=== PATIENT | female | born 1945 | race Two or more races ===

== ENCOUNTER 2017-02-18 13:03 | Emergency (ER) | payer OTHER ==
[~2017-02-18] VITALS: Ht 157.5 cm; Wt 52.2 kg
[~2017-02-18 13:03] MED LIST: AMOX1TAB12 PO; AMOX1TAB8 PO; CREON DR 12,001 EACH; GEMFIBROZIL600 MG PO; LEVO-T125 MCG PO; LEVOTHYROXINE125 MCG PO; LEVSIN/SL0.125 MG SL; PROTONIX40 MG PO; SYNTHROID125 MCG
[2017-02-18] MEDS ORDERED: CREON DR 3,0001 EACH (13:20)
[2017-02-18] MEDS ORDERED: CREON DR 12,001 EACH (13:21)
== END 2017-02-18 15:54 | disposition home or self-care (01) ==
LOC: ER 13:03
DX: S01.122A Laceration with foreign body of left eyelid and periocular area, initial encounter (principal); W06.XXXA Fall from bed, initial encounter; Y93.89 Activity, other specified; Y92.092 Bedroom in other non-institutional residence as the place of occurrence of the external cause; Y99.8 Other external cause status

== ENCOUNTER 2017-03-06 08:54 | Outpatient (CLI) | payer OTHER ==
[~2017-03-06 08:54] MED LIST changes: +CREON DR 3,0001 EACH
== END 2017-03-06 15:59 | disposition home or self-care (01) ==
LOC: TOM 08:54
DX: K86.1 Other chronic pancreatitis (principal)
CPT/HCPCS: 74170; Q9965

== ENCOUNTER 2017-05-03 12:32 | Outpatient (CLI) | payer OTHER | END 2017-05-03 12:39 | disposition home or self-care (01) | LOC: RAD 12:32 | DX: M25.562 Pain in left knee (principal); M25.561 Pain in right knee ==

== ENCOUNTER 2017-08-05 09:16 | Outpatient (CLI) | payer OTHER | END 2017-08-05 11:59 | disposition home or self-care (01) | LOC: MAMO-SONO 09:16 | DX: Z12.31 Encounter for screening mammogram for malignant neoplasm of breast (principal); Z87.898 Personal history of other specified conditions; N63.10 Unspecified lump in the right breast, unspecified quadrant; N63.20 Unspecified lump in the left breast, unspecified quadrant; I10 Essential (primary) hypertension; M54.5 Low back pain; E78.89 Other lipoprotein metabolism disorders; E03.8 Other specified hypothyroidism; M89.9 Disorder of bone, unspecified; K21.9 Gastro-esophageal reflux disease without esophagitis ==

== ENCOUNTER 2017-09-17 17:32 | Emergency (ER) | payer OTHER ==
[~2017-09-17] VITALS: Ht 170.2 cm; Wt 65.8 kg
== END 2017-09-17 20:21 | disposition home or self-care (01) ==
LOC: ER 17:32
DX: N39.0 Urinary tract infection, site not specified (principal); B96.1 Klebsiella pneumoniae [K. pneumoniae] as the cause of diseases classified elsewhere

== ENCOUNTER 2017-10-16 11:20 | Emergency (ER) | payer OTHER ==
[~2017-10-16] VITALS: Ht 154.9 cm; Wt 54.4 kg
== END 2017-10-16 15:39 | disposition home or self-care (01) ==
LOC: ER 11:20
DX: N39.0 Urinary tract infection, site not specified (principal); B96.29 Other Escherichia coli [E. coli] as the cause of diseases classified elsewhere

== ENCOUNTER 2017-12-28 10:30 | Emergency (ER) | payer OTHER ==
[~2017-12-28] VITALS: Ht 154.9 cm; Wt 56.2 kg
[2017-12-28] MEDS ORDERED: SYNTHROID112 MCG (10:58)
== END 2017-12-28 16:48 | disposition home or self-care (01) ==
LOC: ER 10:30
DX: N39.0 Urinary tract infection, site not specified (principal); B96.29 Other Escherichia coli [E. coli] as the cause of diseases classified elsewhere

== ENCOUNTER 2018-09-02 11:01 | Emergency (ER) | payer OTHER ==
[~2018-09-02] VITALS: Ht 152.4 cm; Wt 56.2 kg
[~2018-09-02 11:01] MED LIST changes: +SYNTHROID112 MCG
== END 2018-09-02 15:50 | disposition home or self-care (01) ==
LOC: ER 11:01
DX: N39.0 Urinary tract infection, site not specified (principal); B96.29 Other Escherichia coli [E. coli] as the cause of diseases classified elsewhere

== ENCOUNTER 2019-03-18 10:34 | Outpatient (CLI) | payer OTHER | END 2019-03-18 10:36 | disposition home or self-care (01) | LOC: MAMO-SONO 10:34 | DX: M54.5 Low back pain (principal); M89.8X8 Other specified disorders of bone, other site; Z12.31 Encounter for screening mammogram for malignant neoplasm of breast; Z87.898 Personal history of other specified conditions; E03.8 Other specified hypothyroidism; E55.9 Vitamin D deficiency, unspecified; E78.89 Other lipoprotein metabolism disorders; G62.89 Other specified polyneuropathies; K21.9 Gastro-esophageal reflux disease without esophagitis; I10 Essential (primary) hypertension; Z68.21 Body mass index [BMI] 21.0-21.9, adult; Z12.11 Encounter for screening for malignant neoplasm of colon ==

== ENCOUNTER 2019-03-19 13:20 | Outpatient (CLI) | payer OTHER | END 2019-03-19 13:28 | disposition home or self-care (01) | LOC: NUCLEAR 13:20 | DX: M89.8X0 Other specified disorders of bone, multiple sites (principal); M54.5 Low back pain; E03.8 Other specified hypothyroidism; E78.89 Other lipoprotein metabolism disorders; E55.9 Vitamin D deficiency, unspecified; G62.89 Other specified polyneuropathies; K21.9 Gastro-esophageal reflux disease without esophagitis; I10 Essential (primary) hypertension; Z68.21 Body mass index [BMI] 21.0-21.9, adult; Z12.31 Encounter for screening mammogram for malignant neoplasm of breast; Z12.11 Encounter for screening for malignant neoplasm of colon; M81.0 Age-related osteoporosis without current pathological fracture ==

== ENCOUNTER 2019-06-15 09:25 | Outpatient (CLI) | payer OTHER | END 2019-06-15 09:35 | disposition home or self-care (01) | LOC: SONOGRAMA 09:25 | DX: E03.8 Other specified hypothyroidism (principal); M54.5 Low back pain; M89.8X8 Other specified disorders of bone, other site; E55.9 Vitamin D deficiency, unspecified; E78.89 Other lipoprotein metabolism disorders; G62.89 Other specified polyneuropathies; K21.9 Gastro-esophageal reflux disease without esophagitis; I10 Essential (primary) hypertension; Z68.21 Body mass index [BMI] 21.0-21.9, adult; Z12.31 Encounter for screening mammogram for malignant neoplasm of breast; Z12.11 Encounter for screening for malignant neoplasm of colon; E04.2 Nontoxic multinodular goiter ==

== ENCOUNTER 2021-08-22 10:40 | Outpatient (CLI) | payer OTHER | END 2021-08-22 10:44 | disposition home or self-care (01) | LOC: NUCLEAR 10:40 | PROVIDERS: ATTEND Internal Medicine | DX: M89.9 Disorder of bone, unspecified (principal); M54.59 Other low back pain; E03.9 Hypothyroidism, unspecified; E55.9 Vitamin D deficiency, unspecified; E78.9 Disorder of lipoprotein metabolism, unspecified; G62.9 Polyneuropathy, unspecified; K21.9 Gastro-esophageal reflux disease without esophagitis; I10 Essential (primary) hypertension; L40.2 Acrodermatitis continua; Z68.21 Body mass index [BMI] 21.0-21.9, adult; Z12.31 Encounter for screening mammogram for malignant neoplasm of breast; Z12.11 Encounter for screening for malignant neoplasm of colon; Z88.8 Allergy status to other drugs, medicaments and biological substances ==

== ENCOUNTER 2021-08-22 11:08 | Outpatient (CLI) | payer OTHER | END 2021-08-22 11:11 | disposition home or self-care (01) | LOC: MAMO-SONO 11:08 | PROVIDERS: ATTEND Internal Medicine | DX: Z12.31 Encounter for screening mammogram for malignant neoplasm of breast (principal) ==

== ENCOUNTER 2021-09-10 11:37 | Emergency (ER) | payer OTHER ==
[~2021-09-10] VITALS: Ht 154.9 cm; Wt 51.7 kg
[2021-09-10] MEDS ORDERED: SYNTHROID125 MCG PO (11:46)
== END 2021-09-10 20:34 | disposition home or self-care (01) ==
LOC: ER 11:37
DX: S39.93XA Unspecified injury of pelvis, initial encounter (principal); W18.30XA Fall on same level, unspecified, initial encounter; Y93.9 Activity, unspecified; Y92.012 Bathroom of single-family (private) house as the place of occurrence of the external cause; Z88.8 Allergy status to other drugs, medicaments and biological substances; E03.9 Hypothyroidism, unspecified; M62.830 Muscle spasm of back

== ENCOUNTER 2023-05-23 11:06 | Outpatient (CLI) | payer OTHER ==
[~2023-05-23 11:06] MED LIST changes: +SYNTHROID125 MCG PO
== END 2023-05-23 12:00 | disposition home or self-care (01) ==
LOC: MAMO-SONO 11:06
PROVIDERS: ATTEND Internal Medicine
DX: M89.9 Disorder of bone, unspecified (principal); E03.9 Hypothyroidism, unspecified; E55.9 Vitamin D deficiency, unspecified; E78.9 Disorder of lipoprotein metabolism, unspecified; G62.9 Polyneuropathy, unspecified; I10 Essential (primary) hypertension; Z68.21 Body mass index [BMI] 21.0-21.9, adult; Z13.820 Encounter for screening for osteoporosis; Z12.11 Encounter for screening for malignant neoplasm of colon; Z12.31 Encounter for screening mammogram for malignant neoplasm of breast

== ENCOUNTER 2023-10-29 11:46 | Outpatient (CLI) | payer OTHER | END 2023-10-29 11:50 | disposition home or self-care (01) | LOC: SONOGRAMA 11:46 | PROVIDERS: ATTEND Internal Medicine | DX: E03.9 Hypothyroidism, unspecified (principal); M89.9 Disorder of bone, unspecified; E55.9 Vitamin D deficiency, unspecified; E78.9 Disorder of lipoprotein metabolism, unspecified; G62.9 Polyneuropathy, unspecified; I10 Essential (primary) hypertension; Z68.21 Body mass index [BMI] 21.0-21.9, adult; Z13.820 Encounter for screening for osteoporosis; Z12.11 Encounter for screening for malignant neoplasm of colon ==

== ENCOUNTER 2023-10-29 13:00 | Outpatient (CLI) | payer OTHER | END 2023-10-29 13:01 | disposition home or self-care (01) | LOC: NUCLEAR 13:00 | PROVIDERS: ATTEND Internal Medicine | DX: Z13.820 Encounter for screening for osteoporosis (principal); M81.0 Age-related osteoporosis without current pathological fracture ==

== ENCOUNTER 2024-07-14 09:44 | Outpatient (CLI) | payer OTHER | END 2024-07-14 09:53 | disposition home or self-care (01) | LOC: MAMO-SONO 09:44 | PROVIDERS: ATTEND Internal Medicine | DX: Z12.31 Encounter for screening mammogram for malignant neoplasm of breast (principal); M89.9 Disorder of bone, unspecified; E03.9 Hypothyroidism, unspecified; E55.9 Vitamin D deficiency, unspecified; E78.9 Disorder of lipoprotein metabolism, unspecified; G62.9 Polyneuropathy, unspecified; I10 Essential (primary) hypertension; Z68.21 Body mass index [BMI] 21.0-21.9, adult; Z13.820 Encounter for screening for osteoporosis; Z12.11 Encounter for screening for malignant neoplasm of colon ==